=== PATIENT | male | born 1980 | race Hispanic/Latino ===

== ENCOUNTER 2019-08-14 20:02 | Emergency (ER) | payer SELFPAY ==
[2019-08-14] MEDS ORDERED: TETRACAINE 0.5% OPHTH SOLN 4ML OU PRN (20:24)
[2019-08-14] MEDS ORDERED: FLUORESCEIN 1 MG STRIP OP ONE (20:24)
--- NOTE | 2019-08-14 21:01 | Emergency Department Report ---
ED Eye Problem HPI - General Chief complaint: Eye Problems Stated complaint: LEFT EYE FB Source: patient Mode of arrival: Ambulatory Limitations: No Limitations - History of Present Illness Initial comments: Patient is a 38-year-old white male with no past medical history who presents to the ED with acute onset persistent severe left eye pain after debris is which consist of rusted metallic parts from under his car accidentally entered into his left eye 24 hours ago while working under the car 24 hours ago. Patient states that the pain has been persistent and got worse in the last 12 hours despite thyroid irrigation. Patient states that there is a foreign body sensation in the left eye each time he blinks his eye. Patient states that he is up-to-date with all his vaccinations including tetanus. Patient denies vision loss, nausea, vomiting, headache, chest pain, shortness of breath or head injury. MD chief complaint: eye pain (Left eye pain), eye redness, eye injury (left) -: Sudden, hour(s) (24) Onset Description: sudden Location: left eye Place: work If Injury: other (foreign debris entered into the left eye) Eye Symptoms: burning, redness, pain, foreign body sensation Severity: severe Severity scale (0 -10): 7 If Pain, Quality: sharp, burning, aching Consistency: constant Associated Symptoms: none. denies: headache, neck pain, nausea/vomiting, cough, rhinorrhea, fever, shortness of breath Treatments Prior to Arrival: irrigated eye, eyepatch - Related Data Patient Tetanus UTD: Yes Previous Rx's Medication Instructions Recorded Last Taken Type Ibuprofen [Motrin] 800 mg PO Q8HR PRN #20 tablet 08/14/19 Unknown Rx Moxifloxacin HCl [Vigamox 0.5%] 1 drop OP Q8HR #3 ml 08/14/19 Unknown Rx Allergies Allergy/AdvReac Type Severity Reaction Status Date / Time No Known Allergies Allergy Unverified 08/14/19 20:12 ED Review of Systems ROS: Stated complaint: LEFT EYE FB Other details as noted in HPI Constitutional: denies: chills, fever Eyes: eye pain (left), other (photophobia). denies: eye discharge, vision change ENT: denies: ear pain, throat pain Respiratory: denies: cough, shortness of breath, wheezing Cardiovascular: denies: chest pain, palpitations Endocrine: no symptoms reported Gastrointestinal: denies: abdominal pain, nausea, diarrhea Genitourinary: denies: urgency, dysuria Musculoskeletal: denies: back pain, joint swelling, arthralgia Skin: denies: rash, lesions Neurological: denies: headache, weakness, paresthesias Psychiatric: denies: anxiety, depression Hematological/Lymphatic: denies: easy bleeding, easy bruising ED Past Medical Hx - Past Medical History Previous Medical History?: No - Surgical History Past Surgical History?: No - Social History Smoking Status: Light Tobacco Smoker Substance Use Type: None - Medications Home Medications: Home Medications Medication Instructions Recorded Confirmed Last Taken Type Ibuprofen [Motrin] 800 mg PO Q8HR PRN #20 tablet 08/14/19 Unknown Rx Moxifloxacin HCl [Vigamox 0.5%] 1 drop OP Q8HR #3 ml 08/14/19 Unknown Rx ED Physical Exam - General Limitations: No Limitations General appearance: alert, in no apparent distress - Head Head exam: Present: atraumatic, normocephalic, normal inspection - Eye Eye exam: Present: normal appearance, PERRL, EOMI, other (erythematous left cornea and conjunctiva with fluorescein dye absorption with Wood's lamp exam) Pupils: Present: normal accommodation - ENT ENT exam: Present: normal exam, normal orophraynx, mucous membranes moist, TM's normal bilaterally, normal external ear exam - Neck Neck exam: Present: normal inspection, full ROM - Respiratory Respiratory exam: Present: normal lung sounds bilaterally. Absent: respiratory distress, wheezes, rhonchi, chest wall tenderness, accessory muscle use - Cardiovascular Cardiovascular Exam: Present: regular rate, normal rhythm, normal heart sounds. Absent: systolic murmur, diastolic murmur, rubs, gallop - GI/Abdominal GI/Abdominal exam: Present: soft, normal bowel sounds. Absent: tenderness, hyperactive bowel sounds, hypoactive bowel sounds - Extremities Exam Extremities exam: Present: normal inspection, full ROM, normal capillary refill - Back Exam Back exam: Present: normal inspection, full ROM. Absent: tenderness, CVA tenderness (R), muscle spasm, paraspinal tenderness - Neurological Exam Neurological exam: Present: alert, oriented X3, CN II-XII intact, normal gait, reflexes normal - Psychiatric Psychiatric exam: Present: normal affect, normal mood - Skin Skin exam: Present: warm, dry, intact, normal color. Absent: rash ED Course Vital Signs 08/14/19 20:05 Temperature 99.0 F Pulse Rate 90 Respiratory 18 Rate Blood Pressure 145/93 O2 Sat by Pulse 96 Oximetry ED Medical Decision Making - Medical Decision Making This is a 38-year-old white male with no past medical history who presents to the ED with acute onset persistent severe left eye pain after debris is which consist of rusted metallic parts from under his car accidentally entered into his left eye 24 hours ago while working under the car 24 hours ago. Patient states that the pain has been persistent and got worse in the last 12 hours despite thyroid irrigation. Patient states that there is a foreign body sensation in the left eye each time he blinks his eye. Patient states that he is up-to-date with all his vaccinations including tetanus. In the ED, patient is alert and oriented x3 and is not in any distress. Patient was treated in the ED for pain by application of tetracaine 0.5% ophthalmic solution to the left eye. Vo lamp exam with fluorescein dye revealed mild abrasions in the left medial conjunctival and sclera. On reevaluation, patient's pain is well controlled with medications, and the patient's visual acuity is unremarkable. Patient will discharge home on antibiotic eyedrops and oral pain medications and was referred to the of spin instructor Dr. Reno Burgess for follow-up in 3 to 5 days. Patient was advised to return to the ED immediately if symptoms get worse. - Differential Diagnosis Eye injury; corneal abrasion; Keratitis Critical care attestation.: If time is entered above; I have spent that time in minutes in the direct care of this critically ill patient, excluding procedure time. ED Disposition Clinical Impression: Left eye injury Qualifiers: Encounter type: initial encounter Qualified Code(s): S05.92XA - Unspecified injury of left eye and orbit, initial encounter Injury of left conjunctiva and corneal abrasion Qualifiers: Encounter type: initial encounter Qualified Code(s): S05.02XA - Injury of conjunctiva and corneal abrasion without foreign body, left eye, initial encounter Left cornea abrasion Qualifiers: Encounter type: initial encounter Qualified Code(s): S05.02XA - Injury of conjunctiva and corneal abrasion without foreign body, left eye, initial encounter Disposition: DC-01 TO HOME OR SELFCARE Is pt being admited?: No Does the pt Need Aspirin: No Condition: Stable Instructions: Corneal Abrasion (ED) Additional Instructions: Apply the medication to the affected eye as advised, drink plenty fluids and follow-up with your primary care physician in 5 to 7 days for reevaluation. Return to the ED immediately if symptoms get worse. Prescriptions: Ibuprofen [Motrin] 800 mg PO Q8HR PRN #20 tablet PRN Reason: Pain , Severe (7-10) Moxifloxacin HCl [Vigamox 0.5%] 1 drop OP Q8HR #3 ml Referrals: RENO BURGESS MD [Staff Physician] - 3-5 Days Time of Disposition: 20:59 Print Language: EGYPTIAN
[2019-08-14 21:36] VITALS: BP 136/96
== END 2019-08-14 21:36 | disposition home or self-care (01) ==
LOC: ED 20:02
DX: S05.02XA Injury of conjunctiva and corneal abrasion without foreign body, left eye, initial encounter (principal); F17.200 Nicotine dependence, unspecified, uncomplicated; Z79.899 Other long term (current) drug therapy; X58.XXXA Exposure to other specified factors, initial encounter; Y93.89 Activity, other specified; Y92.89 Other specified places as the place of occurrence of the external cause; Y99.8 Other external cause status
CPT/HCPCS: 99283